=== PATIENT | female | born 2005 | race Caucasian/White ===

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

== ENCOUNTER 2025-02-20 21:07 | Emergency (ER) | payer OTHER, SELFPAY ==
--- OUTSIDE RECORDS SUMMARY | 2023-11-05 11:20 | XMS_ITS ---
Author Organization [facility] Address [address] [place] [address] Care Team Providers Care Restaurant Bartender Name Role Phone Taisha Cronin [phone] Encounters Encounter Location Date Provider Diagnosis [facility] [address] [place] [address] 11/05/2023 Taisha Cronin Plan Of Treatment No Information Progress Notes * Kelby MCCORMICKDiamondB: 6 (19 yo F)Acc No.[id number]:11/05/2023 Progress Notes Patient: Halle Carney Provider: Rodrigue Cronin PA-C :2005 A ge:18 Y S ex:Female Date:11/05/2023 Address:[address] [place], [place] Billing Information: * Procedure Codes: * Electronic signature of Reynaldo Cronin PA-C on 02/20/2025 at 09:20 PM EST Sign off status: Pending * Provider: Rodrigue Cronin PA-C Date: 0 11/05/2023 Generated for Carroll ng/Faxing/eTransmitting on: 1 04/23/2024 09:20 PM EST
--- OUTSIDE RECORDS SUMMARY | 2024-04-07 09:20 | XMS_ITS ---
Author Organization [facility] Address [address] [place] [address] Care Team Providers Care Delivery Driver Name Role Phone Taisha Cronin Unavailable [phone] REASON FOR VISIT AWV Encounters Encounter Location Date Provider Diagnosis [facility] [address] [place] [address] 04/07/2024 Taisha Cronin Plan Of Treatment No Information Progress Notes * Kelby MCCORMICKDiamondB: 6 (19 yo F)Acc No.[id number]:04/07/2024 Progress Notes Patient: Halle Carney Provider: Rodrigue Cronin PA-C :2005 A ge:18 Y S ex:Female Date:04/07/2024 Address:[address] [place], [id number] Subjective: * Chief Complaints: * A [place] Billing Information: * Procedure Codes: * Electronic signature of Reynaldo Cronin PA-C on 02/20/2025 at 09:20 PM EST Sign off status: Pending * Provider: Rodrigue Cronin PA-C Date: 0 04/07/2024 Generated for Carroll ng/Fagautamg/eTransmitting on: 1 04/23/2024 09:20 PM EST
--- OUTSIDE RECORDS SUMMARY | 2024-04-28 08:20 | XMS_ITS ---
Author Organization [facility] Address [address] [place] [address] Care Team Providers Care Photo Finish Photographer Name Role Phone Taisha Cronin [phone] Encounters Encounter Location Date Provider Diagnosis [facility] [address] [place] [address] 04/28/2024 Taisha Cronin Plan Of Treatment No Information Progress Notes * Kelby MCCORMICKDiamondB: 6 (19 yo F)Acc No.[id number]:04/28/2024 Progress Notes Patient: Halle Carney Provider: Rodrigue Cronin PA-C :2005 A ge:18 Y S ex:Female Date:04/28/2024 Address[address] [place], [id number] Billing Information: * Procedure Codes: * Electronic signature of Reynaldo Cronin PA-C on 02/20/2025 at 09:21 PM EST Sign off status: Pending * Provider: Rodrigue Cronin PA-C Date: 0 04/28/2024 Generated for Carroll ng/Faxing/eTransmitting on: 1 04/23/2024 09:21 PM EST
--- OUTSIDE RECORDS SUMMARY | 2024-06-23 08:20 | XMS_ITS ---
Author Organization [facility] Address [address] [place] [address] Care Team Providers Care Labor Expediter Name Role Phone LISA GARIBAY Unavailable [phone] REASON FOR VISIT sick Medications Medication SIG (Take, Route, Frequency, Duration) Notes Start Date End Date Status TRAZODONE 50 mg tablet as directed orally Active ATOMOXETINE 60 mg capsule 1 cap(s) orall y once a day (in the morning) Active RISPERIDONE 1 mg tablet 1 tab(s) orally 2 times a day Active PRAZOSIN 2 mg capsule 1 cap(s) orally QH S; Duration: 30 days Active AMOXICILLIN 500 mg capsule 1 cap(s) oral ly 3 times a day; Duration: 7 days 03/25/2024 Active Encounters Encounter Location Date Provider Diagnosis [facility] [address] [place] [address] 06/23/2024 LISA GARIBAY Plan Of Treatment No Information Progress Notes * Osito MCCORMICKB: 6 (19 yo F)Acc No.[id number]:06/23/2024 Progress Note Patient: Rodrigue lirianoKelbya Provider: PEPITO Nair :2005 A ge:18 Y S ex:Female Date:06/23/2024 Address:[address] [place], [place] Subjective: * Chief Complaints: * S ick * Medications: T akingTRAZODONE 50 mg tablet as directed orally ATOMOXETINE 60 mg capsule 1 cap(s) orally once a day (in the morning) RISPERIDONE 1 mg tablet 1 tab(s) orally 2 times a day PRAZOSIN 2 mg capsule 1 cap(s) orally QHS AMOXICILLIN 500 mg capsule 1 cap(s) orally 3 times a day Taking TRAZODONE 50 mg tablet as directed orally Taking ATOMOXETINE 60 mg capsule 1 cap(s) orally once a day (in the morning) Taking RISPERIDONE 1 mg tablet 1 tab(s) orally 2 times a day Taking PRAZOSIN 2 mg capsule 1 cap(s) orally QHS Taking AMOXICILLIN 500 mg capsule 1 cap(s) orally 3 times a day * Electronic signature of VANDANA GARIBAY PA-C on 02/20/2025 at 09:20 PM EST Sign off status: Pending * Provider: PEPITO Nair Date: 0 06/23/2024 Generated for Carroll durand/Luna/Fabian on: 1 04/23/2024 09:20 PM EST
--- OUTSIDE RECORDS SUMMARY | 2024-08-13 16:30 | XMS_ITS ---
Author Organization [facility] Address [address] [place] [address] Care Team Providers Care Warehouse Order Puller Name Role Phone Migration, Provider Unavailable Unavailable REASON FOR VISIT Multum To Medispan Conversion Encounter Medications Medication SIG (Take, Route, Frequency, Duration) Notes Start Date End Date Status risperiDONE 1 MG Tablet 1 tab(s) orally 2 times a day Active ATOMOXETINE 60 MG CAPSULE 1 CAP(S) ORALLY ONCE A DAY (IN THE MORNING) *Please review for potential replacement for e-prescription and drug interaction check* Active Amoxicillin 500 MG Capsule 1 cap(s) orally 3 times a day; Duration: 7 days 03/25/2024 Active Prazosin HCl 2 MG Capsule 1 cap(s) orally QHS; Duration: 30 days Active traZODone HCl 50 MG Tablet as directed orally Active Encounters Encounter Location Date Provider Diagnosis [facility] [address] [place] [address] 08/13/2024 Provider Migration Plan Of Treatment No Information Progress Notes * sOito MCCORMICKB: 6 (19 yo F)Acc No.[id number]:08/13/2024 Patient: Rodrigue lirianoKelbya Provider: :2005 A ge:18 Y S ex:Female Date:08/13/2024 Address:[address] [place], [place] Subjective: * Chief Complaints: * M ultum To Medispan Conversion Encounter * Medications: T akingtraZODone HCl 50 MG Tablet as directed orally ATOMOXETINE 60 MG CAPSULE 1 CAP(S) ORALLY ONCE A DAY (IN THE MORNING) , Notes to Pharmacist: *Please review for potential replacement for e-prescription and drug interaction check*risperiDONE 1 MG Tablet 1 tab(s) orally 2 times a day Prazosin HCl 2 MG Capsule 1 cap(s) orally QHS Amoxicillin 500 MG Capsule 1 cap(s) orally 3 times a day Taking traZODone HCl 50 MG Tablet as directed orally Taking ATOMOXETINE 60 MG CAPSULE 1 CAP(S) ORALLY ONCE A DAY (IN THE MORNING) , Notes to Pharmacist: *Please review for potential replacement for e-prescription and drug interaction check*Taking risperiDONE 1 MG Tablet 1 tab(s) orally 2 times a day Taking Prazosin HCl 2 MG Capsule 1 cap(s) orally QHS Taking Amoxicillin 500 MG Capsule 1 cap(s) orally 3 times a day * Electronic signature of Prov ider Migration on 02/20/2025 at 09:20 PM EST Sign off status: Pending * Provider: Date: 0 08/13/2024 Generated for Carroll durand/Luna/Fabian on: 04/23/2024 09:20 PM EST
--- OUTSIDE RECORDS SUMMARY | 2025-01-26 09:20 | XMS_ITS ---
Author Organization [facility] Address [address] [place] [address] Care Team Providers Care Electronic Court Recorder Name Role Phone Taisha Cronin Unavailable [phone] REASON FOR VISIT Office Visit Encounters Encounter Location Date Provider Diagnosis [facility] [address] [place] [address] 01/26/2025 Taisha Cronin Plan Of Treatment No Information Progress Notes * Kelby MCCORMICKDiamondB: 6 (19 yo F)Acc No.[id number]:01/26/2025 Progress Note Patient: Halle Carney Provider: Rodrigue Cronin PA-C :2005 A ge:19 Y S ex:Female Date:01/26/2025 Address[address] [place], [place] Subjective: * Chief Complaints: * O ffice Visit Billing Information: * Procedure Codes: Care Plan Details* * Electronic signature of Reynaldo Cronin PA-C on 02/20/2025 at 09:20 PM EST Sign off status: Pending * Provider: Rodrigue Cronin PA-C Date: 03/28/2024 Generated for Carroll ng/Faxing/eTransmitting on: 04/23/2024 09:20 PM EST
[2025-02-20 21:19] VITALS: BP 161/86; PULSE 93; RESP 20; TEMP 36.8; O2SAT 99; BMI 22.6
--- OUTSIDE RECORDS SUMMARY | 2025-02-20 21:20 | XMS_ITS | Patient Health Record ---
Author Organization [facility] Address [address] [place] [address] Care Team Providers Care Measurement Technician Name Role Phone LISA GARIBAY Unavailable [phone] SumanTaisha flynn Unavailable [phone] Migration, Provider Unavailable Unavailable Allergies No Known Allergies Reason For Referral No Information Medications Medication SIG (Take, Route, Frequency, Duration) [...] 50 MG Tablet as directed orally Active Social History Social History Social History Social Info Question Answer Notes Tobacco Use Current smoking status: Current Smoker [facility] Additional Details Category Social Info Options Details Social History Alcohol no Drug use occasional marij uana Problems Problem Type SNOMED Code ICD Code Onset Dates Problem Status W/U Status Risk Notes Problem Anxiety disorder (906274069) Anxiety disorder, unspecified (F41.9) Active confirmed Problem Posttraumatic stress disorder (42047411) Post-traumatic stress disorder, chronic (F43.12) Active confirmed Problem Adjustment disorder with mixed anxiety and depressed mood (106141071) Adjustment disorder with mixed anxiety and depressed mood (F43.23) Active confirmed Problem Eating disorder (47781136) Eating disorder, unspecified (F50.9) Active confirmed Problem 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 Problem Derangement of knee (06242242) Unspecified internal derangement of right knee (M23.91) Active confirmed Problem Irregular menstruation (73406207) Irregular menstruation, unspecified (N92.6) Active confirmed Problem Affective psychosis (045565565) Unspecified mood [affective] disorder (F39) Active confirmed Encounters Encounter Location Date Provider Diagnosis [address] [address] 08/13/2024 Provider Migration [address] [address] 03/25/2024 LISA GARIBAY Acute pharyngitis, unspecified J02.[address] [address] 03/25/2024 LISA GARIBAY Assessments Encounter Date Diagnosis (ICD Code) Assessment Notes Treatment Notes Treatment Clinical Notes Section Notes 03/25/2024 Acute pharyngitis, unspecified (ICD-10 - J02.9) 03/25/2024 Other This visit was conducted via telehealth. Privacy and security precautions were taken in accordance with HIPAA. Patient approves insurance billing and cost sharing. Daixe or enStage which are audio and visually enabled for two way interaction was used for this visit. Plan Of Treatment Pending Test Test Name Order Date URINE 08/08/2022 CBC (INCLUDES DIFF/PLT) 04/18/2022 COMPREHENSIVE METABOLIC PANEL W/EGFR 12/2022 TSH, 3RD GENERATION W/REFLEX TO FT4 04/09 Medical (General) History Medical History History ICD Code maternal substance abuse anxiety ADD/ADHD Bulimia nervosa F50.2 Bulimia nervosa undefined Surgical History Surgery Date(Month/Year) tonsillectomy 08/2020 Hospitalization History Reason Date(Month/Year) [facility] [place] [facility] [address]
--- NOTE | 2025-02-20 21:22 | PC.NURSE ---
Urine collected and sent to lab Report given to Maru CARLSON
--- NOTE | 2025-02-20 21:24 | ED_ITS ---
<Statement entered by Maryam Cabral DO - 02/20/25 22:14> I was consulted by the CARYN, and we discussed the complexity of problems being addressed. I approve the treatment and management plan for this patient's care in the emergency department, thus performing a substantial portion of the medical decision making. Maryam Cabral DO Discharge Plan Disposition Patient Disposition: Home, Self-Care Condition: Good Prescriptions Prescriptions: New phenazopyridine [Pyridium] 100 mg tablet 100 mg PO Q8H PRN (Reason: pain) Qty: 10 0RF No Action puzecexeplvovxf-fidnjpara-RS 2-30-10 mg/5 mL syrup 7.5 ml PO Q4-6H PRN (Reason: cough and congestion) 7 Days Qty: 118 0RF buspirone 15 mg tablet 15 mg PO BID Qty: 60 0RF methylphenidate HCl [Concerta] 54 mg tablet extended release 24hr 54 mg PO DAILY Qty: 30 0RF risperidone [Risperdal] 0.5 mg tablet 0.5 mg PO BID Qty: 60 0RF sertraline [Zoloft] 50 mg tablet 50 mg PO DAILY Qty: 30 0RF pyrethrins-piperonyl butoxide [Lice Killing] 0.33-4 % shampoo See Rx Instructions .ROUTE .COMPLEX Qty: 118 0RF Dose Instruction: apply topically ONCE DIRECTED Rx Instructions: apply topically ONCE DIRECTED ibuprofen 400 MG tablet 400 mg PO Q6HP PRN (Reason: Moderate Pain) Qty: 30 0RF Referrals Follow up/Referrals: Jaswinder ([facility]),BARRETT Cardoso [Primary Care Provider, Emergency Medicine] - See instructions Activity Restrictions/Add. Instructions Additional Instructions/Restrictions: Please return to the emergency department with any worsening signs or symptoms. Please take your bladder antispasmodic medication as needed for symptomatic relief. We will call you with any results of your STI panel. No news is good news. Please follow-up with your family doctor in the upcoming days/weeks. Clinical Impressions Clinical Impression: Urinary frequency Print Language Print Language: Mexican Discharge ED Provider: Maryam Cabral General Adult HPI General Chief complaint: Abdominal Pain Stated complaint: back pain,frequency,cloudy discharge Time Seen by Provider: 02/20/25 21:13 Mode of Arrival: Ambulatory Source of Information: Patient Description of Symptoms (Recalled from ER Triage Doc. by RN): Pt c/o abdominal fullness STates she was treated for UIT but did not take the medication History of Present Illness HPI narrative: 19-year-old female presents to the emergency department with suprapubic pain and low back pain for the last 3 to 4 days as well as some urinary frequency, denies any overt dysuria, does endorse a urinary tract infection that was treated at an outside urgent care facility approximately 2 weeks ago, patient states she was prescribed what sound like doxycycline and Macrobid, did not finish the medication, also patient states that she was also diagnosed with a yeast infection , finished medication for this, does endorse some vaginal pruritus, and some vaginal discharge, denies any vaginal bleeding, denies any foul- smelling discharge, does admit to foul-smelling urine, denies any flank pain, denies any fever chills chest pain shortness of breath, mitts to nausea at times, denies any nausea currently, denies any vomiting, denies any constipation diarrhea no melena, no hematuria no hematemesis no hematochezia. Patient has other past medical history consistent with generalized anxiety disorder, she denies any new sexual contacts or risky sexual behaviors, she denies any alcohol tobacco or drug use, initial triage vitals are unremarkable. Please note that above description of symptoms, in this electronic medical record under categorization of recalled from ER triage doctor by RN are reflective of an initial nursing assessment, however, is not reflective of my full history and physical exam that was personally taken and clarified. Conse quentially, this preceding description of symptoms, which may include the patient's categorized chief complaint in the EMR, do not reflect my personal clinical impression, and the ultimate description of history of present illness and patient stated complaints should be deferred to this section of the note. Unless stated otherwise or congruent with this section of the note, additional signs, symptoms, or incongruence should be interpreted as inaccurate with my clinical impression. Onset (ago): day(s) Related Data Previous Rx's ?Medication ?Instructions ?Recorded dxxtrdpzqagjysd-okugsogafnezayd-BX 7.5 ml PO Q4-6H PRN cough and 05/12/19 2 mg-30 mg-10 mg/5 mL oral syrup congestion 7 days #11 8 mL buspirone 15 mg tablet 15 mg PO BID #60 tabs methylphenidate HCl 54 mg 54 mg PO DAILY #30 tabs 07/26 tablet,extended release 24 hr (Concerta) risperidone 0.5 mg tablet 0.5 mg PO BID #60 tabs 10/11 (Risperdal) sertraline 50 mg tablet (Zoloft) 50 mg PO DAILY #30 ta bs 10/12/19 pyrethrins 0.33 %-piperonyl See Rx Instructions .Route 01/04/20 butoxide 4 % shampoo (Lice Killing) .COMPLEX #118 mL ibuprofen 400 mg tablet 400 mg PO Q6HP PRN Moderate Pain 02/15/20 #30 tabs phenazopyridine 100 mg tablet 100 mg PO Q8H PRN pain # 10 tabs 02/20/25 (Pyridium) Allergies Allergy/AdvReac Type Severity Reaction Status Date / Time No Known Allergies Allergy Verified 05/12/19 13:36 [facility] Disclaimer: The information contained in this section may have been updated after the patient was seen, as this information can be updated by other users. Social History Smoking Status: Current every day smoker tobacco type: e-cigarettes alcohol intake: never substance use type: denies use current occupational status: student Travel in the last 8 weeks?: None household members: family housing: house number of children: 0 Have you lived/traveled outside [place] in past 30 days?: No Contact w/someone who lives/traveled outside [place] past 30 days?: No Exposure to someone with infectious disease in past 14 days?: No Do you have a fever (greater than 100.4 F or 38 C)?: No Have you tested positive for COVID-19?: No Exposed to someone with COVID-19 in past 14 days?: No Do you have a sore throat?: No Do you have a cough?: No Do you have any weakness?: No Do you have any diarrhea?: No Are you experiencing any unusual bleeding?: No Do you have any muscle aches/pain?: No Do you have any abdominal pain?: No Are you experiencing loss of taste or smell?: No Other Medical History Have you received the Pneumonia Vaccine: No ROS Obtained: Yes All systems reviewed & no additional complaints except as documented Physical Exam General General appearance: alert and in no apparent distress Head Head exam: atraumatic and normocephalic Eye Eye exam: Present PERRL and EOMI ENT ENT exam: Present mucous membranes moist Neck Neck exam: Present normal inspection Chest Chest inspection: Present normal inspection and symmetric chest wall rise Respiratory Respiratory exam: Present normal lung sounds bilaterally; Absent respiratory distress Cardiovascular Cardiovascular exam: Present regular rate and normal rhythm Abdominal Exam Abdominal exam: Present soft; Absent tenderness, guarding, rebound or rigidity Extremities Exam Extremities exam: Present normal inspection Back Exam Back exam: Present normal inspection; Absent tenderness, CVA tenderness (R) or CVA tenderness (L) Neurological Exam Neurological exam: Present alert and oriented X3 Psychiatric Psychiatric exam: Present normal affect Skin Skin exam: Present warm and dry Medical Decision Making Medical Records Medical records reviewed: Yes I reviewed the patient's medical records. Screening: Per USPSTF and CDC recommendations, given the prevalence of disease in our region, it is our hospital?s policy to screen for HIV and viral Hepatitis for all patients aged 18 and over and those with ongoing risk factors. Jerrod Inquiry Pt receiving controlled substance: No Vital Signs: 02/20/25 21:19 Temperature 98.3 F Temperature Source Oral Pulse Rate [Right Radial] 93 H Respiratory Rate 20 Blood Pressure [Right Arm] 161/86 H Blood Pressure Mean [Right Arm] 111 Blood Pressure Source [Right Arm] Automatic Cuff Blood Pressure Position [Right Arm] Sitting 02 Sat by Pulse Oximetry 99 Oxygen Delivery Method Room Air Lab Data Lab results reviewed: Yes I reviewed the patient's lab results. Lab Results 02/20/25 21:14: Urine HCG, Qual Negative 02/20/25 21:16: Urine Color Yellow, Urine Appearance Clear, Urine pH 7.0, Ur Specific [place] 1.010, Urine Protein Negative, Urine Glucose (UA) Negative, Urine Ketones Negative, Urine Blood Negative, Urine Nitrate Negative, Urine Bilirubin Negative, Urine Urobilinogen 0.2, Ur Leukocyte Esterase Negative, Urine RBC None, Urine WBC None, Ur Squamous Epith Cells None, Amorphous Sediment 1+, Urine Bacteria None Orders (Tests/Meds): ORDERS Category Date Time Status Bacterial vaginosis/Ghada Stat Lab 02/20/25 21:25 Ordered HIV Combo Routine Lab 02/20/25 21:22 Ordered Hepatitis C Ab Qual. W/ RFX Routine Lab 02/20/25 21:22 Ordered Urinalysis and Microscopic Stat Lab 02/20/25 21:16 Completed Urine Chlam/Gono/Trich ([facility]) Stat Lab 02/20/25 21:16 Received Urine , HCG Qual. Stat Lab 02/20/25 21:14 Completed Medical Decision Narrative: 19-year-old female presents to the emergency department with urinary tract symptomatology for the last 3 to 4 days, differential diagnose include but not limited to acute UTI, bacterial vaginosis, STI, candidal vaginitis among others. I discussed this patient's case with the attending physician Dr. Cabral Will obtain urinalysis, hCG qualitative urine chlamydia gonorrhea Ghada, trichomonas and bacterial vaginosis nucleic antigen. I did offer to prophylactically treat the patient for STI, she did not this time would like to be called for this. Will send off patient's urinalysis as well as STI test as above and call the patient if any are positive as all test are send out. hCG qualitative negative Urinalysis is notable for negative nitrites negative leukocyte esterase, negative hematuria. Microscopic analysis is unremarkable. I discussed the results with the patient and family at the bedside, patient family are in agreement with the current discharge plan/treatment plan. Will treat the patient with p.o. Pyridium here for urgency and suprapubic pain, and will prescribe patient Pyridium to take as needed. Patient has no other red flag signs or symptoms, able to tolerate p.o. intake, no tachycardia has remained hemodynamically stable that her time in the emergency department. This cleared to be discharged home to self-care. Will call patient with results of her STI panel, patient opted not to be treated at this time shared decision making was utilized believe this appropriate. Patient was given strict return precautions. Critical Care Critical Care Time Critical Care Time: No
[2025-02-20 21:28] LABS: Microscopic, Urine URINE MICROSCOPIC (MICROSCOPIC)
[2025-02-20 21:35] LABS: Bilirubin,Urine Negative (Negative); Color,Urine YELLOW (Yellow); Glucose,Urine (UA) Negative (Negative); Ketones,Urine Negative (Negative); Leukocyte Esterase,Urine Negative (Negative); PH,Urine 7.0 (5.0-8.5); Protein,Urine Negative (Negative); Specific Gravity, Urine 1.010 (1.005-1.030); Urobilinogen,Urine 0.2 EU/dl (0.2)
[2025-02-20 21:37] LABS: Urine Pregnancy, HCG Qual. Negative (Negative)
[2025-02-20 21:54] LABS: Amorphous Sediment,Urine 1+ /lpf
[2025-02-20] MEDS: PHENAZOPYRIDINE 200MG TABLET 200 MG PO (22:16)
[2025-02-20 22:23] VITALS: BP 161/86; PULSE 93; RESP 20; TEMP 36.8; O2SAT 99
[2025-02-23 00:54] LABS: BVAB2 Low - 0 Score (.); Candida albicans NAA Negative (Negative); Candida glabrata Negative (Negative)
== END 2025-02-20 22:25 | disposition home or self-care (01) ==
PROVIDERS: Physician Assistant; Emergency Provider Student in an Organized Health Care Education/Training Program; PCP Nurse Practitioner Family
DX: R10.24 Suprapubic pain (principal); R35.0 Frequency of micturition
CPT/HCPCS: 81001; 81025; 87491; 87591; 87661; 87798; 87801; 99283; 99284